=== PATIENT | male | born 1960 | race Caucasian/White ===

== ENCOUNTER 2017-11-17 06:15 | Inpatient (IN) | payer BC, OTHER ==
[2017-11-17] VITALS (13 sets, daily range): BP systolic 120–150; BP diastolic 77–96
[~2017-11-17] VITALS: Ht 193 cm; Wt 127.0 kg
[~2017-11-17 06:15] MED LIST: Zemuron 50mg/5ml Inj IV ONE
[2017-11-17] MEDS ORDERED: Metoclopramide 10mg/2ml Inj IVP PRN (06:30)
[2017-11-17] MEDS ORDERED: Ketorolac 30mg Inj IV PRN ×2 (06:30)
[2017-11-17] MEDS ORDERED: Lidocaine 1% MPF 10mg/ml 5ml ONE (06:30)
[2017-11-17] MEDS ORDERED: LORazepam Inj 2mg/ml 1ml IV PRN (06:30)
[2017-11-17] MEDS ORDERED: fentaNYL 100 mcg/2 mL IV PRN (06:30)
[2017-11-17] MEDS ORDERED: Norco 5mg/325mg tab ORAL PRN (06:30)
[2017-11-17] MEDS ORDERED: Atropine Inj 1mg/10ml Syr IV PRN (06:30)
[2017-11-17] MEDS ORDERED: Sodium Chloride 10ml vial INJ ONE (06:30)
[2017-11-17] MEDS ORDERED: Acetaminophen (Non formulary) 100 ML IV ONE (06:30)
[2017-11-17] MEDS ORDERED: HYDROcodone/Acetamin 7.5/325 tab ORAL PRN (06:30)
[2017-11-17] MEDS ORDERED: Lidocaine 1% Plain 30 ml INJ ONE ×2 (06:30→10:04)
[2017-11-17] MEDS ORDERED: Labetalol 5mg/ml 20ml vial IV PRN (06:30)
[2017-11-17] MEDS ORDERED: Dexamethasone 4mg/ml vial ONE (06:30)
[2017-11-17] MEDS ORDERED: oxyCODONE HCL/Acetaminophen 5/325mg ORAL PRN (06:30)
[2017-11-17] MEDS ORDERED: Midazolam 2mg/2ml Inj IVP PRN (06:30)
[2017-11-17] MEDS ORDERED: DiphenhydrAMINE 50mg/ml Inj IVP PRN (06:30)
[2017-11-17] MEDS ORDERED: Hydromorphone 0.5mg/0.5ml inj IVP PRN (06:30)
[2017-11-17] MEDS ORDERED: LR 1000ml 1,000 ML IVLG SCH (06:30)
[2017-11-17] MEDS ORDERED: fentaNYL 100 mcg/2 mL IV ONE ×2 (06:55→10:29)
[2017-11-17] MEDS ORDERED: Thrombin 5000 units TOPIC ONE ×2 (06:55→06:57)
[2017-11-17] MEDS ORDERED: Bupivacaine 0.25% Inj 30ml INJ ONE (06:56)
[2017-11-17] MEDS ORDERED: Bacitracin 50000 Units Vial ONE (06:56)
[2017-11-17] MEDS ORDERED: Bupivacaine 0.5% Inj 30 ml vial INJ ONE (06:56)
[2017-11-17] MEDS ORDERED: EPINEPHrine 1mg/1ml Amp ONE (06:57)
[2017-11-17] MEDS ORDERED: Bacitracin Oint 15gm Tube TOPIC ONE (06:57)
--- NOTE | 2017-11-17 07:41 | Anethesia Preoperative Eval ---
Anesthesia Pre-op PMH/ROS General Date of Evaluation: Nov 17, 2017 Time of Evaluation: 07:41 Anesthesiologist: Joyce ASA Score: ASA 3 Mallampati Score Class I : Soft palate, uvula, fauces, pillars visible Class II: Soft palate, uvula, fauces visible Class III: Soft palate, base of uvula visible Class IV: Only hard plate visible Mallampati Classification: Class III Surgeon: Reese Diagnosis: Neck Pain Surgical Procedure: Left C5-6, C6-7 Foraminotony Anesthesia History: none Family History: no anesthesia problems Allergies: Coded Allergies: IODINE (Verified Allergy, Severe, anaphylatic shock, 11/16/17) Medications: see eMAR Past Medical History Cardiovascular: Reports: HTN, other - HL Gastrointestinal/Genitourinary: Reports: GERD HEENT: Reports: cataract (L), glaucoma Other: obesity - BMI 35 PSxH Narrative: Cataract SX, Cervical Sx X2 Anesthesia Pre-op Phys. Exam Physician Exam Constitutional: NAD Neurologic: CN 2-12 intact Cardiovascular: RRR Respiratory: CTA Gastrointestinal: S/NT/ND Airway Exam Mallampati Score: Class III MO: full ROM: limited Teeth: intact Anesthesia Pre-op A/P Risk Assessment & Plan Assessment: ASA 3 Plan: GA, BIS, GlideScope Status Change Before Surgery: No Pre-Antibiotics Dru Grams Ancef IV Given Within 1 Hr of Incision: Yes Time Given: 08:26 Jason Cook MD Nov 17, 2017 07:41
[2017-11-17] MEDS ORDERED: METOPROLOL TART50 M1 ORAL (07:51)
[2017-11-17] MEDS ORDERED: AMLODIPINE BESY10 MG ORAL (07:51)
[2017-11-17] MEDS ORDERED: CATAPRES0.2 MG ORAL (07:52)
[2017-11-17] MEDS ORDERED: DIOVAN320 MG ORAL (07:53)
[2017-11-17] MEDS ORDERED: CITALOPRAM HBR40 M1 ORAL (07:53)
[2017-11-17] MEDS ORDERED: OMEPRAZOLE40 M1 ORAL (07:54)
--- NOTE | 2017-11-17 07:55 | Pre-Procedure Note/Attestation ---
Pre-Procedure Note/Attestation Complete Prior to Procedure Planned Procedure: left Procedure Narrative: Multi-level cervical foraminotomies Indications for Procedure Pre-Operative Diagnosis: Cervical foraminal stenosis Attestation I attest that I discussed the nature of the procedure; its benefits; risks and complications; and alternatives (and the risks and benefits of such alternatives ), prior to the procedure, with the patient (or the patient's legal assisted sales representative). I attest that, if there was a reasonable possibility of needing a blood transfusion, the patient (or the patient's legal assisted sales representative) was given the [facility] standardized written summary, pursuant to the [place] Blood Safety Act ([place] Health and Safety Code # 1645, as amended). I attest that I re-evaluated the patient just prior to the surgery and that there has been no change in the patient's H&P, except as documented below: EDWIN KOTHARI Nov 17, 2017 07:55
[2017-11-17] MEDS ORDERED: LR 1000ml ONE (08:00)
[2017-11-17] MEDS ORDERED: Propofol 1,000mg/ 100ml btl IV ONE (08:00)
[2017-11-17] MEDS ORDERED: Sterile Water Irrig 1000ml IRRIG ONE (08:00)
[2017-11-17] MEDS ORDERED: NS Irrig 1000ml ONE (08:00)
[2017-11-17] MEDS ORDERED: Neostigmine 1mg/ml 10ml Inj ONE (08:00)
[2017-11-17] MEDS ORDERED: POTASSIUM CHLO10 ME2 PO (08:02)
[2017-11-17] MEDS ORDERED: CONCERTA54 MG PO (08:03)
[2017-11-17] MEDS ORDERED: RITALIN10 MG ORAL (08:03)
[2017-11-17] MEDS ORDERED: GABAPENTIN300 MG ORAL (08:05)
[2017-11-17] MEDS ORDERED: CRESTOR20 MG ORAL (08:06)
[2017-11-17] MEDS ORDERED: Glycopyrrolate 0.2mg/ml 1ml Vial ONE ×3 (10:53→10:58)
[2017-11-17] MEDS ORDERED: Naloxone 0.4mg/ml Inj ONE (11:16)
--- NOTE | 2017-11-17 11:56 | Immediate Post-Op Evaluation ---
Immediate Post-Op Evalulation Immediate Post-Op Evalulation Procedure: Left C5-6, C6-7 Foraminotony Date of Evaluation: Nov 17, 2017 Time of Evaluation: 12:05 IV Fluids: 1100 LR Blood Products: 0 Estimated Blood Loss: 50 Urinary Output: 350 Blood Pressure Systolic: 130 Blood Pressure Diastolic: 89 Pulse Rate: 90 Respiratory Rate: 16 O2 Sat by Pulse Oximetry: 96 Temperature (Fahrenheit): 97.6 Pain Score (1-10): 2 Nausea: No Vomiting: No Complications 0 Patient Status: awake, reacts, patent, extubated, none Hydration Status: adequate Dru Grams Ancef IV Given Within 1 Hr of Incision: Yes Time Given: 08:26 Jason Cook MD Nov 17, 2017 11:56
--- NOTE | 2017-11-17 12:25 | Diagnostic Imaging Report ---
Indication: Neck pain, right upper extremity greater than left upper extremity pain, intraoperative Technique: Intraoperative images Comparison: none Findings: Intraoperative images demonstrate a needle projected posterior to the C4 vertebral body. Subsequent images demonstrate localizer tool posterior to the C5 vertebral body and then the C4-5 disc. There appears to be evidence of prior cervical spine surgery. Impression: Intraoperative imaging, as described
--- NOTE | 2017-11-17 12:34 | Brief Operative Note ---
Immediate Post Operative Note Operative Note Chief Complaint: Left arm radiculopathy Pre-op Diagnosis: Cervical foraminal stenosis Procedure: C5-6-7 Left foraminotomy Post-op Diagnosis: same Post-op Diagnosis: same as pre-op Findings: consistent w/pre-op dx studies Surgeon: Milad Kothari Pharmacy Operations Specialist: Elliot Ryan Anesthesiologist: Merle Harris Anesthesia: general Specimen: none Complications: none Condition: stable Fluids: per Anesthesia Estimated Blood Loss: minimal Drains: hemovac Implant(s) used?: No EDWIN KOTHARI Nov 17, 2017 12:34
[2017-11-17] MEDS ORDERED: HYDROcodone/Acetamin 10/325 tab ORAL SCH (15:55)
[2017-11-17] MEDS: NS w/KCl 20mEq 1,000 ML IV SCH (15:58)
[2017-11-17] MEDS: ceFAZolin sod 1 GM in D5W 55 ML IV SCH (15:59)
[2017-11-17] MEDS ORDERED: Cyclobenzaprine 10mg Tab ORAL PRN (16:00)
[2017-11-17] MEDS ORDERED: Morphine Sulfate 4mg/ml Inj IM PRN (16:00)
[2017-11-17] MEDS: Docusate 100mg/10ml Liq NG SCH (17:41)
[2017-11-17] MEDS: Irbesartan 150mg tablet ORAL SCH (17:41)
[2017-11-17] MEDS ORDERED: Citalopram Hydrobromide 10mg Tab ORAL SCH (21:00)
[2017-11-17] MEDS ORDERED: Atorvastatin 20mg tab ORAL SCH (21:00)
[2017-11-17] MEDS ORDERED: Tamsulosin 0.4mg cap ORAL SCH (21:00)
[2017-11-17] MEDS: HYDROcodone/Acetamin 10/325 tab ORAL PRN (21:38)
[2017-11-17] MEDS: Metoprolol 25mg tab ORAL SCH (21:59)
[2017-11-17] MEDS: cloNIDine 0.2mg Tab ORAL SCH (21:59)
--- NOTE | 2017-11-17 22:00 | Consultation ---
DATE OF CONSULTATION: 11/17/2017 CONSULTING PHYSICIAN: Jose Francisco Altamirano M.D. REFERRING PHYSICIAN: Ray Leihg M.D. REASON FOR CONSULTATION: Acute pain consult. DEAR DR. LEIGH: Thank you kindly for consulting me to evaluate and render an opinion as to how to proceed in the management of the patient's acute postoperative multiple level posterior cervical spine surgery pain. The patient is a very pleasant 57-year-old gentleman, who underwent 2 previous anterior cervical spine fusion surgeries in 2013 and 2014. He had recurrent symptoms in his upper extremities and Dr. Leigh performed multiple level decompressive posterior foraminotomy surgery today. The patient complained of severe pain postoperatively. He consulted me for acute pain consultation. I saw the patient at bedside with his . I performed detailed history and physical examination. I spent over 75 minutes in consultation with an additional 30 minutes in medical record review. I reviewed multiple records and the patient's hospital chart including preoperative history physical with diagnostic testing by Dr. Kvng Wolfe. I also reviewed multiple records from the nursing and pharmacy department along with records from the surgery suite. PAST MEDICAL HISTORY: 1. Acute postoperative cervical spine pain, status post posterior cervical spine multilevel foraminotomy by Dr. Ray Leigh in October 2017. 2. Obesity. 3. Hypertension. 4. Daily alcohol usage. 5. Left eye retinal tear. 6. ADD. 7. GERD. 8. Anxiety. PAST SURGICAL HISTORY: 1. Left anterior cervical spine fusion surgery x2 in 2013 and 2014. 2. Bilateral knee arthroscopies. 3. Tonsillectomy. Number transcribed under past had attention deficit disorder gastroesophageal reflux disease anxiety. ALLERGIES: Iodine. MEDICATIONS: At home, atenolol, citalopram, Prilosec, potassium, Augmentin, clonidine, Ritalin. REVIEW OF SYSTEMS: Per attending physician. PHYSICAL EXAMINATION: VITAL SIGNS: Age 57, height 6 feet 1 inch, weight 285 pounds, body-mass index 34. Vital signs, afebrile, pulse 82, respirations 20, blood pressure 128/84, oxygen saturation 95% on supplemental nasal cannula oxygen. HEENT: Shows pain with range of motion. The patient appears non-toxic. Neck dressing appears clean and dry with Hemovac drain holding suction. The patient is breathing, phonating, and swallowing within normal limits. A detailed eye exam deferred to preoperative examination proctor. No Ramos palsy. No Delon syndrome. CHEST: Clear to auscultation. HEART: Regular rate and rhythm. Positive S4. Normal S1, S2. ABDOMEN: Mildly obese. Positive bowel sounds. No rebound or guarding. GENITOURINARY: Deferred. NEUROLOGIC: Detailed neurologic exam per Dr. Leigh. LABORATORY STUDIES: October 2017, shows glucose 119, BUN 23, creatinine 1.0. Sodium 137, potassium 4.0, chloride 102, calcium 9.7, total protein 7.1, albumin 4.8, total bilirubin is 0.4, alkaline phosphatase 78, AST 38. White count 6, hematocrit 53, platelets 200,000. Urinalysis negative. Bicarbonate 22. Hepatitis A, B, and C, all negative. INR 0.9, PTT 28. Preoperative shows left atrial enlargement, normal sinus rhythm, ventricular rate 91. IMPRESSION: 1. Acute postoperative cervical spine pain, status post posterior cervical spine multilevel foraminotomy by Dr. Ray Leigh in October 2017. 2. Obesity. 3. Hypertension. 4. Daily alcohol usage. 5. Left eye retinal tear. 6. ADD. 7. GERD. 8. Anxiety. TREATMENT RECOMMENDATIONS: The patient is doing pretty well after surgery. I have set up a tiered regimen of analgesics. He does not use marijuana or smoke tobacco. He has tolerated Valium in the past. With his history of drinking 2 to 3 [place] drinks every afternoon, I will place him on nightly dose of Valium 5 mg on a scheduled basis. The patient cannot tolerate Percocet due to severe headache side effects. He has used Tylenol No. 3 with Codeine, but states this pain medication seems quite weak. We will trial him on hydrocodone 10/325 tablets one every three hours p.r.n. I will trial him on a dose now with some liquids to avoid nausea symptoms. We will restart his baseline Neurontin which he takes 300 mg 3 times a day. I will also restart his citalopram for mood stability which he takes 40 mg nightly. The patient believes he will not have any problems keeping his ADHD Ritalin doses this evening. The patient has tolerated Flexeril in the past and I will trial him on 10 mg orally every 8 hours p.r.n. for muscle spasm. After his previous neck fusion surgery, he states that morphine is well tolerated. I have ordered morphine 4 mg intramuscular every three hours p.r.n. for severe breakthrough pain. He will be restarted on his proton-pump inhibitor for his chronic condition. I have also added p.r.n. dose of Mylanta 30 mL q.6 hours in case of any GERD symptom exacerbation. The patient will be restarted on his multiple blood pressure medications, but with many parameters to be certain not to lower the patient's blood pressure inappropriately. Incentive spirometer has been placed at the bedside to encourage good pulmonary toilet. At the time of discharge, the patient will require a prescription for pain medications, depending on what is efficacious here in the hospital. SOCIAL HISTORY: The patient is accompanied at the bedside by his . The patient denies tobacco or marijuana usage. The patient drinks 2 to 3 [place] drinks every afternoon/evening. Jose Francisco Altamirano M.D. DR: Mian JOB#: [id number] CC:
[2017-11-17] MEDS: Morphine Sulfate 4mg/ml Inj IM PRN (22:34)
[2017-11-18] VITALS: BP 153/100
[2017-11-18] MEDS: ceFAZolin sod 1 GM in D5W 55 ML IV SCH ×2 (00:39→08:29)
[2017-11-18] MEDS: HYDROcodone/Acetamin 10/325 tab ORAL PRN ×2 (00:41→06:21)
[2017-11-18] MEDS: Morphine Sulfate 4mg/ml Inj IM PRN ×2 (02:05→08:05)
--- NOTE | 2017-11-18 02:45 | Consultation ---
DATE OF CONSULTATION: 11/17/2017 CONSULTING PHYSICIAN: Jose Francisco Altamirano M.D. REFERRING PHYSICIAN: Ray Leigh M.D. REASON FOR CONSULTATION: Acute pain consult. DEAR DR. LEIGH: Thank you kindly for consulting me to evaluate and render an opinion as to how to proceed in the management of the patient's acute postoperative multiple level posterior cervical spine surgery pain. The patient is a very pleasant 57-year-old gentleman, who underwent 2 previous anterior cervical spine fusion surgeries in 2013 and 2014. He had recurrent symptoms in his upper extremities and Dr. Leigh performed multiple level decompressive posterior foraminotomy surgery today. The patient complained of severe pain postoperatively. He consulted me for acute pain consultation. I saw the patient at bedside with his . I performed detailed history and physical examination. I spent over 75 minutes in consultation with an additional 30 minutes in medical record review. I reviewed multiple records and the patient's hospital chart including preoperative history physical with diagnostic testing by Dr. Kvng Wolfe. I also reviewed multiple records from the nursing and pharmacy department along with records from the surgery suite. PAST MEDICAL HISTORY: 1. Acute postoperative cervical spine pain, status post posterior cervical spine multilevel foraminotomy by Dr. Ray Leigh in October 2017. 2. Obesity. 3. Hypertension. 4. Daily alcohol usage. 5. Left eye retinal tear. 6. ADD. 7. GERD. 8. Anxiety. PAST SURGICAL HISTORY: 1. Left anterior cervical spine fusion surgery x2 in 2013 and 2014. 2. Bilateral knee arthroscopies. 3. Tonsillectomy. Number transcribed under past had attention deficit disorder gastroesophageal reflux disease anxiety. ALLERGIES: Iodine. MEDICATIONS: At home, atenolol, citalopram, Prilosec, potassium, Augmentin, clonidine, Ritalin. SOCIAL HISTORY: The patient is accompanied at the bedside by his . The patient denies tobacco or marijuana usage. The patient drinks 2 to 3 [place] drinks every afternoon/evening. REVIEW OF SYSTEMS: Per attending physician. PHYSICAL EXAMINATION: VITAL SIGNS: Age 57, height 6 feet 1 inch, weight 285 pounds, body-mass index 34. Vital signs, afebrile, pulse 82, respirations 20, blood pressure 128/84, oxygen saturation 95% on supplemental nasal cannula oxygen. HEENT: Shows pain with range of motion. The patient appears non-toxic. Neck dressing appears clean and dry with Hemovac drain holding suction. The patient is breathing, phonating, and swallowing within normal limits. A detailed eye exam deferred to preoperative cryptologic technician. No Ramos palsy. No Delon syndrome. CHEST: Clear to auscultation. HEART: Regular rate and rhythm. Positive S4. Normal S1, S2. ABDOMEN: Mildly obese. Positive bowel sounds. No rebound or guarding. GENITOURINARY: Deferred. NEUROLOGIC: Detailed neurologic exam per Dr. Leigh. LABORATORY STUDIES: October 2017, shows glucose 119, BUN 23, creatinine 1.0. Sodium 137, potassium 4.0, chloride 102, calcium 9.7, total protein 7.1, albumin 4.8, total bilirubin is 0.4, alkaline phosphatase 78, AST 38. White count 6, hematocrit 53, platelets 200,000. Urinalysis negative. Bicarbonate 22. Hepatitis A, B, and C, all negative. INR 0.9, PTT 28. Preoperative shows left atrial enlargement, normal sinus rhythm, ventricular rate 91. IMPRESSION: 1. Acute postoperative cervical spine pain, status post posterior cervical spine multilevel foraminotomy by Dr. Ray Leigh in October 2017. 2. Obesity. 3. Hypertension. 4. Daily alcohol usage. 5. Left eye retinal tear. 6. ADD. 7. GERD. 8. Anxiety. TREATMENT RECOMMENDATIONS: The patient is doing pretty well after surgery. I have set up a tiered regimen of analgesics. He does not use marijuana or smoke tobacco. He has tolerated Valium in the past. With his history of drinking 2 to 3 [place] drinks every afternoon, I will place him on nightly dose of Valium 5 mg on a scheduled basis. The patient cannot tolerate Percocet due to severe headache side effects. He has used Tylenol No. 3 with Codeine, but states this pain medication seems quite weak. We will trial him on hydrocodone 10/325 tablets one every three hours p.r.n. I will trial him on a dose now with some liquids to avoid nausea symptoms. We will restart his baseline Neurontin which he takes 300 mg 3 times a day. I will also restart his citalopram for mood stability which he takes 40 mg nightly. The patient believes he will not have any problems keeping his ADHD Ritalin doses this evening. The patient has tolerated Flexeril in the past and I will trial him on 10 mg orally every 8 hours p.r.n. for muscle spasm. After his previous neck fusion surgery, he states that morphine is well tolerated. I have ordered morphine 4 mg intramuscular every three hours p.r.n. for severe breakthrough pain. He will be restarted on his proton-pump inhibitor for his chronic condition. I have also added p.r.n. dose of Mylanta 30 mL q.6 hours in case of any GERD symptom exacerbation. The patient will be restarted on his multiple blood pressure medications, but with many parameters to be certain not to lower the patient's blood pressure inappropriately. Incentive spirometer has been placed at the bedside to encourage good pulmonary toilet. At the time of discharge, the patient will require a prescription for pain medications, depending on what is efficacious here in the hospital. Jose Francisco Altamirano M.D. DR: Mian JOB#: [id number] CC:
[2017-11-18 04:00] VITALS: BP 145/96
[2017-11-18] MEDS: NS w/KCl 20mEq 1,000 ML IV SCH (04:30)
[2017-11-18 08:00] VITALS: BP 116/109
[2017-11-18 08:00] LABS: ANION GAP 7 mmol/L (5-15); BLOOD UREA NITROGEN 15 mg/dL (7-18); CALCIUM 8.7 MG/DL (8.5-10.1); CARBON DIOXIDE 28 MMOL/L (21-32); CHLORIDE 106 MMOL/L (98-107); CREATININE 0.9 MG/DL (0.55-1.30); POTASSIUM 4.3 MMOL/L (3.5-5.1); SODIUM 141 MMOL/L (136-145)
[2017-11-18] MEDS: Metoprolol 25mg tab ORAL SCH (08:28)
[2017-11-18] MEDS: Irbesartan 150mg tablet ORAL SCH (08:28)
[2017-11-18] MEDS: cloNIDine 0.2mg Tab ORAL SCH (08:29)
[2017-11-18] MEDS: Docusate 100mg/10ml Liq NG SCH (08:29)
[2017-11-18] MEDS ORDERED: Citalopram Hydrobromide 10mg Tab ORAL SCH (09:00)
[2017-11-18] MEDS ORDERED: HYDROcodone/Acetamin 10/325 tab ORAL SCH (09:25)
[2017-11-18] MEDS ORDERED: HYDROcodone/Acetamin 10/325 tab ORAL PRN ×2 (09:30→10:00)
[2017-11-18] MEDS ORDERED: NS 500ML ONE (11:19)
--- NOTE | 2017-11-18 12:00 | Consultation ---
DATE OF CONSULTATION: 11/17/2017 INTERNAL MEDICINE CONSULT CONSULTING PHYSICIAN: Jose Francisco Harper M.D. REQUESTING PHYSICIAN: Ray Leigh M.D. REASON FOR CONSULTATION: The patient was admitted to the hospital to undergo surgery. He underwent C5, C6, C7 left foraminotomy. He has a drain in. HISTORY OF PRESENT ILLNESS: This is a tall-statured male with history of cervical disk disease, status post couple of fusion of anterior cervical spine from C5 to C7. He underwent the above surgery. He has history of hypertension, hyperlipidemia, attention-deficit disorder, and gastroesophageal reflux disease. Denies any nausea or vomiting. Denies any chest pain or chest tightness. He has had history of macular edema and repaired retinal detachment of the left eye. MEDICATIONS PRIOR TO ADMISSION: 1. Atenolol 50 mg daily. 2. Celexa 40 daily. 3. Omeprazole 40 daily. 4. KCl 10 daily. 5. Augmentin. 6. Clonidine. 7. Concerta 54 daily. 8. Ritalin 10 mg daily. 9. hydrochlorothiazide 25 daily. PAST SURGICAL HISTORY: 1. Arthroscopy of knee, bilateral. 2. Cervical diskectomy, C4-C5. 3. Tonsillectomy. REVIEW OF SYSTEMS: The patient denies any nausea or vomiting right now. PHYSICAL EXAMINATION: HEENT: has left periorbit slight ecchymosis. HEART: S1 and S2 regular. NECK: There is a drain in place. IMPRESSION: This is an unfortunate male status post cervical spine foraminotomy. He is doing postoperatively well. Since he has drain in, keep the drain in per spine attending. Antibiotic to be given to the patient. Physical therapy. Occupational therapy. Blood pressure medication with hold parameters. Pain control. Monitor closely. Jose Francisco Harper M.D. DR: LILA JOB#: [id number] CC:
[2017-11-18 14:37] VITALS: BP 154/78
--- NOTE | 2017-11-18 14:37 | 48 Hour Post Anesthesia Eval ---
Post Anesthesia Evaluation Procedure: Left C5-6, C6-7 Foraminotony Date of Evaluation: Nov 18, 2017 Time of Evaluation: 11:32 Blood Pressure Systolic: 154 0: 78 Pulse Rate: 84 Respiratory Rate: 20 Temperature (Fahrenheit): 97.6 O2 Sat by Pulse Oximetry: 98 Airway: patent Nausea: No Vomiting: No Pain Intensity: 3 Hydration Status: adequate Cardiopulmonary Status: stable Mental Status/LOC: patient returned to baseline Follow-up Care/Observations: n/a Post-Anesthesia Complications: none Follow-up care needed: ready to discharge Umesh Pepe MD Nov 18, 2017 14:37
--- NOTE | 2017-11-18 17:30 | Progress Note ---
DATE: 11/18/2017 ACUTE PAIN MANAGEMENT PHYSICIAN PROGRESS NOTE MEDICATIONS: Medication administration record reviewed. Medications include Mylanta, Norvasc, Lipitor, Celexa, Catapres, Flexeril, Valium, Benadryl, Colace, Neurontin, [place], Avapro, Lopressor, morphine, Zofran, and Protonix. LABORATORY STUDIES: From this morning show sodium 141, potassium 4.3, chloride 106, bicarbonate 28, BUN 15, creatinine 0.9, and glucose 137. Calcium 8.7. Vital signs shows afebrile, pulse 105, blood pressure 145/96, respirations 20, and oxygen saturation 93%. I saw the patient at bedside with the nurse RN, Feliberto. I discussed the case with the surgeon, Dr. Leigh. The patient's is at the bedside as well providing excellent social support. The patient looks good. He has been ambulating in and out of bed. He is swallowing, breathing, and phonating within normal limits. He is moving all extremities x4 grossly within normal limits. The output from the Hemovac drain overnight was 30 mL. The patient has been advancing his diet without difficulties. The patient denies any shortness of breath or chest pain. The patient is on multiple blood pressure medications and his blood pressure has been in the tolerable range here in the hospital. The patient will resume his routine home medications for blood pressure once he returns home. We did check a potassium level this morning, which is within normal range. The patient's pain levels have been adequately controlled on his scheduled Neurontin along with p.r.n. doses of [place] and intermittent breakthrough doses of intramuscular morphine. I will double the [place] to 2 tablets every 4 hours. I did leave a prescription for outpatient usage. The patient was turned to the right lateral decubitus position. So, I could examine the cervical spine wound. The dressing was removed showing the incision line clean and dry with [place]ura[place] sealant intact. There was no evidence for erythema or exudate. I sterilely cut the suture holding in the indwelling posterior cervical spine drain catheter. Then, at end-expiration, with the Hemovac drain taken off of suction, I personally removed the indwelling posterior cervical spine drain catheter. The tip was intact. Alcohol swab was applied generously to the drain hole site. Sterile island border gauze dressing was then applied over the drain hole site and the incision line without any complications. Jose Francisco Altamirano M.D. DR: CASTRO JOB#: [id number] CC:
--- NOTE | 2017-11-18 22:15 | Discharge Summary ---
DATE OF ADMISSION: 11/17/2017 DATE OF DISCHARGE: 11/18/2017 REASON FOR ADMISSION: Cervical radiculopathy. The patient was admitted to the hospital and underwent foraminotomy. The patient is doing well. The patient denies nausea, vomiting, or diarrhea. Postoperatively, the patient had draining. Drain was removed. Upon discharge, the patient was discharged to home. The patient understands to check the wound. Wound on discharge is clean and dry. Jose Francisco Harper M.D. DR: THANG JOB#: [id number] CC: DEO
--- NOTE | 2017-11-19 01:30 | Discharge Summary ---
DATE OF ADMISSION: 11/17/2017 DATE OF DISCHARGE: 11/18/2017 ADMITTING PHYSICIAN AND SURGEON: Ray Leigh M.D. CONSULTING PHYSICIAN: Jose Francisco Altamirano M.D., Pain Management. ADMITTING DIAGNOSIS: Cervical foraminal stenosis. POSTOPERATIVE DIAGNOSIS: Cervical foraminal stenosis status post multiple level. HOSPITAL COURSE: The patient was admitted for elective posterior cervical spine surgery on 11/17/[address] Leigh. The patient underwent uneventful multilevel surgery in the operating room, was transferred to the recovery room without incident. The patient has been stable vital signs and neurologic signs. He was transferred to the orthopedic floor without any complications. The patient had serial monitoring of vital signs and neurologic function. The patient advance his ambulation and diet. The patient voided urine well and his pain was adequately controlled. The patient was observed on postoperative day #1, the surgical drain was removed without complications. The patient was discharged in the care of his , to follow up with Dr. Leigh in the outpatient clinic next week. Jose Francisco Altamirano M.D. DR: CASTRO JOB#: [id number] CC:
== END 2017-11-18 11:20 | disposition home or self-care (01) | DRG 42 ==
LOC: SDSOVERFLO 06:15 → 3E 14:13
PROC: 01N10ZZ Release Cervical Nerve, Open Approach (ICD-10-PCS; principal; 2017-11-17 07:30)
DX: M54.12 Radiculopathy, cervical region (principal); M48.02 Spinal stenosis, cervical region; I10 Essential (primary) hypertension; K21.9 Gastro-esophageal reflux disease without esophagitis; F90.9 Attention-deficit hyperactivity disorder, unspecified type; F32.9 Major depressive disorder, single episode, unspecified; Z88.8 Allergy status to other drugs, medicaments and biological substances; E66.9 Obesity, unspecified; E78.5 Hyperlipidemia, unspecified; F41.9 Anxiety disorder, unspecified; Z98.1 Arthrodesis status; G89.18 Other acute postprocedural pain
CPT/HCPCS: 36415; 72020; 76001; 80048; 86850; 86900; 86901; 87070; 94003; 94150; J2405; J2710